=== PATIENT | female | born 1940 | race Caucasian/White ===

== ENCOUNTER 2017-06-25 12:20 | Inpatient (IN) | payer MEDICARE ==
[~2017-06-25] VITALS: Ht 165.1 cm; Wt 63.4 kg
--- NOTE | ~2017-06-25 | CN ---
PATIENT NAME:FELECIA HICKS MEDICAL RECORD: [id number] : 42 LOCATION:. D.2125 ADMIT DATE: 06/25/17 ACCOUNT: [id number] CONSULTING PHYSICIAN: ENMANUEL BACH MD REFERRING PHYSICIAN: RAY LEA M.D. DATE OF CONSULTATION: 06/26/2017 Cardiology consultation ADMITTING DIAGNOSES: 1. Coronary artery disease. 2. Recent percutaneous transluminal coronary angioplasty stent at [place]. 3. Atrial fibrillation, chronic. 4. Shortness of breath. 5. Chronic obstructive pulmonary disease. 6. Urinary tract infection. HISTORY OF PRESENT ILLNESS: Mrs. Hicks presents with generalized weakness, found to have a UTI as well as some shortness of breath. She has COPD. She has atrial fibrillation. This is chronic. She is on AV blocking medications for this. She has had no recent change in her medications. No chest pain and no palpitation. She is also status post recent PTCA stent in [place], ____ stents approximately 10 days ago. She has had no recurrent angina. She is on aspirin as well as Brilinta. PHYSICAL EXAMINATION: GENERAL APPEARANCE: Well-nourished, well-developed, appears stated age. Level of distress, comfortable. PSYCHIATRIC: Mental status, alert, normal affect. Orientation, oriented to time, place and person. EYES: Lids and conjunctiva, noninjected. No discharge, no pallor. ENT: Lips, teeth, gums, normal dentition. Oropharynx, no cyanosis, no pallor. NECK: Carotid arteries, bilateral normal upstroke, no bruits, no thrills. JUGULAR VEINS: No jugular venous pressure or distention. CERVICAL LYMPH NODES: Nontender, nonenlarged. THYROID: Not enlarged. Nontender. No nodules. LUNGS: Respiratory effort, unlabored. CHEST: Normal curvature. No thoracic deformity. No chest wall tenderness. Percussion, resonant. Auscultation, clear. No wheezes, no rales, no rhonchi. CARDIOVASCULAR: Precordial exam, nondisplaced. No heaves or pericardial thrills. Rate and rhythm, regular. Heart sounds, normal S1, normal S2. No S3, no gallop, no rub. Systolic murmur, not heard. Diastolic murmur, not heard. EXTREMITIES: No cyanosis, no edema. Peripheral pulses, full and equal in all extremities, except as noted. No bruits appreciated. ABDOMEN: Soft, nondistended. Normal aorta. No bruit. Nontender. No masses. Liver, nontender, no hepatomegaly. Spleen, nontender, no splenomegaly. MUSCULOSKELETAL: No joint tenderness. No joint swelling. No erythema. NEUROLOGICAL: Normal gait, normal strength, normal tone. SKIN: Warm and dry. REVIEW OF SYSTEMS: The patient reports easy bruising but reports no swollen glands. The patient reports no fever, no night sweats, no significant weight gain, no significant weight loss. No significant exercise tolerance. The patient reports no dry eyes, no irritation, no vision change. Patient reports CONSULT REPORT [id number] FELECIA HICKS no difficulty hearing and no ear pain. Patient reports no frequent nose bleeds or nose and sinus problems. Patient reports on arm pain on exertion. No shortness of breath while lying down. No history of heart murmur. Patient reports no cough, no wheezing or coughing up blood. Patient reports no abdominal pain, no vomiting. Normal appetite. No diarrhea and not vomiting blood. No nausea and no constipation. Patient reports no incontinence. No difficulty urinating. No hematuria. No increased frequency. Patient reports no muscle aches. No weakness, no arthralgias, no back pain. No swelling of the extremities. Patient reports no abnormal mole, no jaundice, no rashes. Reports no loss of consciousness. No weakness and no numbness. No seizures, dizziness, or headaches. The patient reports no depression, no sleep disturbance, feeling safe in a relationship and no alcohol abuse. Patient reports on fatigue. Reports no runny nose or sinus pressure. No itching, no hives, and no frequent sneezing. OVERALL IMPRESSION: 1. Atrial fibrillation, chronic, stable on current medications. 2. Coronary artery disease, chronic, stable on current medications. No cardiac workup or treatment is necessary at this time. TRANSINT:[id number] Voice Confirmation ID: [id number] DOCUMENT ID: [id number] ENMANUEL BACH MD CC: [id number] DICTATION DATE: 06/26/17 1156 ANIMAL HUSBANDMAN: 06/26/17 1421 ADM IN [facility] [address] [place] [address]
[2017-06-25 13:21] LABS: APPEARANCE HAZY (CLEAR); BILIRUBIN NEGATIVE (NEGATIVE); COLOR YELLOW (YELLOW); GLUCOSE NEGATIVE (NEGATIVE); KETONE NEGATIVE (NEGATIVE); LEUKOCYTE ESTERASE 2+ (NEGATIVE); NITRITE POSITIVE (NEGATIVE); PROTEIN 1+ mg/dL (NEGATIVE); UROBILINOGEN NORMAL (NORMAL)
[2017-06-25 13:22] LABS: BASOPHILS 0.1 % (0-2); EOSINOPHILS 1.5 % (0-7); HEMOGLOBIN 10.4 g/dL (12-16); IMMATURE GRANULOCYTES 0.7 % (0-5); LYMPHOCYTES 13.8 % (15-50); MCH 29.4 pg (26.0-34.0); MCHC 33.5 g/dL (31.0-37.0); MCV 87.6 fL (80.0-100.0); MEAN PLATELET VOLUME 9.6 fL (7.4-10.4); MONOCYTES 8.2 % (2-11); NEUTROPHILS 75.7 % (40-80); PLATELET COUNT 351 10x3/uL (130-400); RBC 3.54 10x6/uL (4.00-5.40); WBC 13.8 10x3/uL (4.8-10.8)
[2017-06-25 13:22] LABS: BACTERIA MANY /hpf (NONE SEEN); WHITE CELLS - URINE 25-50 /hpf (0-5)
[2017-06-25 13:36] LABS: ALBUMIN 3.2 g/dL (3.4-5.0); ANION GAP 19.3 mmol/L (8-16); BILIRUBIN - TOTAL 0.74 mg/dL (0.2-1.3); CALCIUM 9.1 mg/dL (8.5-10.1); CARBON DIOXIDE 23.5 mmol/L (21.0-32.0); CREATININE - SERUM 3.3 mg/dL (0.6-1.3); POTASSIUM - SERUM 4.8 mmol/L (3.5-5.1); PROTEIN - SERUM 7.8 g/dL (6.4-8.2)
[2017-06-25 13:58] LABS: TROPONIN-I 1.784 ng/mL (0.000-0.060)
[2017-06-25] MEDS ORDERED: BAYER CHEWABLE81 MG PO (15:15)
[2017-06-25] MEDS ORDERED: CARDIZEM CD240 MG PO (15:16)
[2017-06-25] MEDS ORDERED: BRILINTA90 MG PO (15:16)
[2017-06-25] MEDS ORDERED: METOPROLOL TART50 MG PO (15:17)
--- NOTE | 2017-06-25 15:30 | NUR ---
RECIVED FROM ER PER WC TO ROOM 2125. ADMIT ASSESSMENT PER RN.
--- NOTE | 2017-06-25 15:45 | NUR ---
TRANSFER FROM ER. OREINTED TO ROOM. CALL LIGHT IN REACH. WILL CONT. PLAN OF CARE.
[2017-06-25 15:48] VITALS: BP 135/89; BMI 21.4
[2017-06-25 16:42] VITALS: BP 135/89
--- NOTE | 2017-06-25 17:55 | NUR ---
WITHOUT CHANGES OR DISTRESS NOTED AT THIS TIME. DENIES NEEDS.
[2017-06-25 18:40] LABS: CKMB 1.1 U/L (0.0-3.6); CREATINE KINASE 49 UL (21-215)
[2017-06-25 18:42] LABS: TROPONIN-I 1.772 ng/mL (0.000-0.060)
[2017-06-25 19:00] VITALS: BP 121/64
--- NOTE | 2017-06-25 22:35 | NUR ---
INITIAL ROUNDS COMPLETED AT 1915 HRS. PT DENIED ANY DISCOMFORT. BUT WANTS IV SITE CHANGED OUT. STATES IT IS BOTHERING HER IN HER AC. ASSESSMENT COMPLETEDA T 2000 HRS. VSS. CAF PER CM HR 74. IV TO LAC WITH NS AT 75CC/HR. IV PATENT. LUNGS DIMINISHED IN BASES BILAT. BRUISING NOTED TO BILAT ARMS AND R GROIN. NEW IV STARTED #20 TO L HAND WITH ATTEMPT X1 AT 2210 HRS. PT TOLERATED WELL. NS AT 75C/HR TO THAT SITE. IV TO LAC DC'D WITH CATHETER INTACT. WILL CONTINUE TO MONITOR. SR UP X2, CALL LIGHT WITHIN REACH.
[2017-06-26] VITALS: BP 132/84
--- NOTE | 2017-06-26 00:06 | NUR ---
PT AWAKW; DENIES ANY DISCOMFORT. WILL CONTINUE TO MONITOR.
[2017-06-26 01:23] LABS: CREATINE KINASE 52 UL (21-215)
[2017-06-26 01:25] LABS: TROPONIN-I 1.534 ng/mL (0.000-0.060)
--- NOTE | 2017-06-26 02:24 | NUR ---
PT AWAKE; DENIES ANY DISCOMFORT. WILL CONTINUE TO MONITOR.
[2017-06-26 04:00] VITALS: BP 140/86
--- NOTE | 2017-06-26 04:06 | NUR ---
PT AWAKE; DENIES ANY DISCOMFORT. WILL CONTINUE TO MONITOR.
[2017-06-26 05:22] LABS: BASOPHILS 0.2 % (0-2); EOSINOPHILS 1.1 % (0-7); HEMATOCRIT 30.4 % (36.0-48.0); IMMATURE GRANULOCYTES 0.8 % (0-5); LYMPHOCYTES 10.7 % (15-50); MCH 28.8 pg (26.0-34.0); MCHC 32.9 g/dL (31.0-37.0); MCV 87.6 fL (80.0-100.0); MEAN PLATELET VOLUME 9.7 fL (7.4-10.4); MONOCYTES 8.9 % (2-11); NEUTROPHILS 78.3 % (40-80); PLATELET COUNT 352 10x3/uL (130-400); RBC 3.47 10x6/uL (4.00-5.40); RDW 13.1 % (11.5-14.5); WBC 13.1 10x3/uL (4.8-10.8)
[2017-06-26 05:52] LABS: ANION GAP 18.2 mmol/L (8-16); CALCIUM 8.4 mg/dL (8.5-10.1); CREATININE - SERUM 3.3 mg/dL (0.6-1.3); POTASSIUM - SERUM 4.2 mmol/L (3.5-5.1)
--- NOTE | 2017-06-26 06:36 | NUR ---
VSS THROUGHTOUT NIGHT. CAF PER CM. PT DENIED ANY DISCOMFORT. NEEDS MET; WILL CONTINUE TO MONITOR.
--- NOTE | 2017-06-26 07:23 | NUR ---
ASSESSMENT DONE. DENIES NEEDS.
[2017-06-26 08:00] VITALS: BP 143/80
--- NOTE | 2017-06-26 09:26 | NUR ---
RESTS IN BED WITHOUT NEEDS VOICED. IV PATENT. CALL LIGHT IN REACH. WILL CONT. PLAN OF CARE.
[2017-06-26 12:04] VITALS: BP 133/81
[2017-06-26 13:31] LABS: % SATURATION 19 % (15-55); IRON 61 ug/dl (35-150); TOTAL IRON BIND CAPACITY 314 ug/dl (260-445); UNSAT IRON BIND CAPACITY 253 ug/dl (150-375)
[2017-06-26 16:00] VITALS: BP 124/70
--- NOTE | 2017-06-26 18:32 | NUR ---
WITHOUT CHANGES OR DISTRESS NOTED AT THIS TIME. DENIES NEEDS
--- NOTE | 2017-06-26 19:33 | NUR ---
INITIAL ROUNDS COMPLETED. PT DENIES ANY DISCOMFORT. WILL CONTINUE TO MONITOR.
[2017-06-26 20:00] VITALS: BP 115/68
--- NOTE | 2017-06-26 23:02 | NUR ---
ASSESSMETN COMPLETEDA T 2019 HRS. VSS. CAF PER CM HR 78. IV TO LFA WITH NS AT 75CC/HR. IV PATENT. BRUISING NOTED TO BILAT ARMS. LUNGS DIMINISHED IN BASES BILAT. PM MEDS GIVEN. PT CURRENTLY WATCHING TV. WILL CONTINUE TO MONITOR. SR UP X2, CALL LIGHT WITHIN REACH.
[2017-06-27 00:22] VITALS: BP 120/70
--- NOTE | 2017-06-27 00:22 | NUR ---
VSS. PT DENIES ANY DISCOMFORT. WILL CONTINUE TO MONITOR.
--- NOTE | 2017-06-27 02:36 | NUR ---
PT AWAKE;DENIES ANY DISCOMFORT. WILL CONTINUE TO MONITOR.
--- NOTE | 2017-06-27 04:09 | NUR ---
VSS. CAF PER CM. PT DENIES ANY DISCOMFORT. WILL CONTINUE TO MONITOR.
[2017-06-27 04:28] VITALS: BP 140/76
[2017-06-27 06:00] LABS: BASOPHILS 0.1 % (0-2); EOSINOPHILS 0.7 % (0-7); HEMATOCRIT 30.9 % (36.0-48.0); HEMOGLOBIN 10.4 g/dL (12-16); IMMATURE GRANULOCYTES 0.7 % (0-5); LYMPHOCYTES 11.4 % (15-50); MCH 29.5 pg (26.0-34.0); MCHC 33.7 g/dL (31.0-37.0); MCV 87.5 fL (80.0-100.0); MEAN PLATELET VOLUME 9.2 fL (7.4-10.4); MONOCYTES 7.8 % (2-11); NEUTROPHILS 79.3 % (40-80); PLATELET COUNT 339 10x3/uL (130-400); RBC 3.53 10x6/uL (4.00-5.40); RDW 13.4 % (11.5-14.5); WBC 13.7 10x3/uL (4.8-10.8)
[2017-06-27 06:17] LABS: ANION GAP 18.4 mmol/L (8-16); CALCIUM 8.5 mg/dL (8.5-10.1); CARBON DIOXIDE 21.1 mmol/L (21.0-32.0); CREATININE - SERUM 2.9 mg/dL (0.6-1.3); POTASSIUM - SERUM 4.5 mmol/L (3.5-5.1)
--- NOTE | 2017-06-27 06:29 | NUR ---
VSS THROUGHOUT NGITH. CAF PER CM. NO DISTRESS NOTED. NEEDS MET; WILL CONTINUE TO MONITOR.
--- NOTE | 2017-06-27 07:30 | NUR ---
RESTING QUIETLY DENIES ANY NEEDS OR DISCOMFORT AT THIS TIME NAD NOTED
--- NOTE | 2017-06-27 07:46 | NUR ---
ASSESSMENT DONE. DENIES NEEDS.
[2017-06-27 10:34] VITALS: BP 127/61
[2017-06-27 12:00] VITALS: BP 113/83
[2017-06-27 12:58] VITALS: Ht 165.1 cm; Wt 63.4 kg
[2017-06-27 16:34] VITALS: BP 125/78
--- NOTE | 2017-06-27 16:58 | NUR ---
WITHOUT CHANGES OR DISTRESS NOTED AT THIS TIME. DENIES NEEDS.
[2017-06-27 19:00] VITALS: BP 153/86
--- NOTE | 2017-06-27 19:34 | NUR ---
FRESH ICE WATER GIVEN AT PT REQUEST, NO OTHER NEEDS AT THIS TIME.
--- NOTE | 2017-06-27 22:12 | NUR ---
SPOKE WITH ENDODONTIST, INFORMED HER THAT I NEED AN OVERRIDE FOR ATIVAN.
[2017-06-28] VITALS: BP 144/79
--- NOTE | 2017-06-28 00:09 | NUR ---
LINE MAINTENANCE TECHNICIAN AT BED SIDE TO OBTAIN VITALS.
--- NOTE | 2017-06-28 03:01 | NUR ---
PT RESTING IN BED WITH NO DISTRESS. RESPS EVEN/NONLABORED. MONITOR AND CPOC. CALL LIGHT IN REACH. BED LOW.
--- NOTE | 2017-06-28 03:09 | NUR ---
RESTING WITH EYES CLOSED, RESPERATIONS EVEN, NO S/S DISTRESS NOTED.
[2017-06-28 04:00] VITALS: BP 146/71
[2017-06-28 06:05] LABS: BASOPHILS 0.1 % (0-2); EOSINOPHILS 0.4 % (0-7); HEMATOCRIT 30.8 % (36.0-48.0); HEMOGLOBIN 10.3 g/dL (12-16); LYMPHOCYTES 8.2 % (15-50); MCH 29.2 pg (26.0-34.0); MCHC 33.4 g/dL (31.0-37.0); MCV 87.3 fL (80.0-100.0); MEAN PLATELET VOLUME 9.4 fL (7.4-10.4); MONOCYTES 7.5 % (2-11); NEUTROPHILS 82.8 % (40-80); PLATELET COUNT 333 10x3/uL (130-400); RBC 3.53 10x6/uL (4.00-5.40); RDW 13.7 % (11.5-14.5); WBC 14.4 10x3/uL (4.8-10.8)
[2017-06-28 06:09] LABS: ANION GAP 19.6 mmol/L (8-16); CALCIUM 7.9 mg/dL (8.5-10.1); CREATININE - SERUM 2.8 mg/dL (0.6-1.3)
[2017-06-28 06:10] LABS: POTASSIUM - SERUM 3.6 mmol/L (3.5-5.1)
--- NOTE | 2017-06-28 07:43 | NUR ---
ASSESSMENT COMPLETED. TELEMERTY SHOWS CAF. O2 AT 2L/M PER NC. LEFT HAD IV AT 75 CC/HR. DENIES ANY NEEDS. SR UP WITH CALL LIGHT IN REACH. WILL MONITOR
[2017-06-28 08:23] VITALS: BP 128/87
--- NOTE | 2017-06-28 09:22 | NUR ---
REFUSES MEDS UNTIL SEEN BY DOCTOR
--- NOTE | 2017-06-28 11:58 | NUR ---
PT HAS REFUSED ALL MEDS UNTILL DR LUTZ HER
[2017-06-28 12:13] VITALS: BP 155/83
--- NOTE | 2017-06-28 12:58 | NUR ---
PT STILL REFUSSING TO TAKE MEDS TELEMERTY SHOWS CAF. SR UP WITH CALL LIGHT IN REACH. WILL MONITOR
[2017-06-28 16:10] VITALS: BP 144/93
--- NOTE | 2017-06-28 18:18 | NUR ---
UP ON SIDE OF BED.DENIES ANY NEEDS. REFUSES ANY MEDS EXCEPT IV FLUID. TELEMERTY SHOWS UCAF 102
[2017-06-28 19:00] VITALS: BP 155/86
--- NOTE | 2017-06-28 19:45 | NUR ---
US TECH AT BED SIDE, PT DENIES NEEDS.
[2017-06-29 04:00] VITALS: BP 127/86
--- NOTE | 2017-06-29 04:55 | NUR ---
HANDBOOK WRITER AT BED SIDE TO OBTAIN VITALS, NO S/S DISTRESS NOTED.
[2017-06-29 05:52] LABS: BASOPHILS 0.1 % (0-2); EOSINOPHILS 0.2 % (0-7); HEMOGLOBIN 10.7 g/dL (12-16); IMMATURE GRANULOCYTES 0.9 % (0-5); LYMPHOCYTES 8.6 % (15-50); MCH 29.6 pg (26.0-34.0); MCHC 33.4 g/dL (31.0-37.0); MCV 88.4 fL (80.0-100.0); MEAN PLATELET VOLUME 9.5 fL (7.4-10.4); MONOCYTES 7.4 % (2-11); NEUTROPHILS 82.8 % (40-80); PLATELET COUNT 294 10x3/uL (130-400); RBC 3.62 10x6/uL (4.00-5.40); RDW 14.2 % (11.5-14.5); WBC 14.3 10x3/uL (4.8-10.8)
[2017-06-29 06:35] LABS: ANION GAP 21.5 mmol/L (8-16); CALCIUM 7.7 mg/dL (8.5-10.1); CARBON DIOXIDE 18.8 mmol/L (21.0-32.0); CREATININE - SERUM 2.6 mg/dL (0.6-1.3); POTASSIUM - SERUM 4.3 mmol/L (3.5-5.1)
--- NOTE | 2017-06-29 07:37 | NUR ---
AM ROUNDS PT UP TO SIDE OF BED, COUGHING, PT DENIES ANY NEEDS AT THIS TIME, BED LOW AND WHEELS LOCKED, BEDSIDE RAILS X2, RESP EVEN AND UNLABORED. LT HAND IV INFUSING NS AT 75CC/HR. CALL LIGHT IN REACH, NAD NOTED, WILL CONTINUE TO MONITOR.
[2017-06-29 08:14] VITALS: BP 141/97
--- NOTE | 2017-06-29 08:51 | NUR ---
AM MEDS GIVEN AT THIS TIME. PT UP TO SIDE OF BED, DENIES ANY NEEDS AT THIS TIME. CALL LIGHT IN REACH, NAD NOTED, WILL CONTINUE TO MONITOR.
[2017-06-29 09:16] LABS: FOLATE (FOLIC ACID) - SERUM >20.0 ng/mL (>3.0)
[2017-06-29 12:05] VITALS: BP 153/95
[2017-06-29] MEDS ORDERED: LEVAQUIN250 MG PO (13:11)
--- NOTE | 2017-06-29 14:30 | NUR ---
WALKED PT WITHOUT OXYGEN AND PT ONLY DROPPED TO 91%.
--- NOTE | 2017-06-29 14:55 | NUR ---
PROVIDED VERBAL AND WRITTEN DISCHARGE INSTRUCTIONS TO PT AND CAREGIVER AT BEDSIDE. BOTH VERBALIZED UNDERSTANDING REGARDING TEACHING. D/C LT HAND IV, TIP INTACT. WILL CALL FOR WHEELCHAIR FOR PT.
--- NOTE | 2017-06-29 15:02 | NUR ---
PT LEFT UNIT VIA WHEELCHAIR, ACCOMPANIED BY CAREGIVER, NAD NOTED.
--- NOTE | 2017-06-29 17:20 | NUR ---
Patient Name: FELECIA HICKS Admission Status: ER Accout number: [id number] Admission Date: 06-25-2017 : 1941 Admission Diagnosis:WEAKNESS Attending: RAY LEA Current LOS: 4 Anticipated DC Date: 06-29-2017 Planned Disposition: Home Primary Insurance: MEDICARE A & B LATE ENTRY: Discharge Planning Comments: * Is the patient Alert and Oriented? Yes 0 * How many steps to enter\exit or inside your home? 2 0 * PCP DR. NATO LANDIN IN [facility] [place]. 0 * Pharmacy [facility], [place], [place]. 0 * Preadmission Environment Home with Family 0 * ADLs Independent 0 * Equipment Bedside Commode Shower Chair Wheelchair 0 * Other Equipment NO MEDICAL EQUIPMENT PROVIDER PREFERENCE 0 * List name and contact numbers for known caregivers / representatives who currently or will assist patient after discharge: SUELLEN SINGH, FRIEND, 0 * Community resources currently utilized None 0 * Please name any agencies selected above. NONE 0 * Additional services required to return to the preadmission environment? No 0 * Can the patient safely return to the preadmission environment? Yes 0 * Has this patient been hospitalized within the prior 30 days at any hospital? Yes 0 CM MET WITH PT IN ROOM TO DISCUSS DISCHARGE PLANNING AND NEEDS. PT REPORTS LIVING AT HOME INDEPENDENTLY WITH HER SPOUSE. PT HAS BEDSIDE COMMODE, SHOWER CHAIR AND WHEELCHAIR WITH NO MEDICAL EQUIPMENT PROVIDER PREFERENCE. PT HAS NO OUTSIDE SERVICES ASSISTING IN THE HOME. CM DISCUSSED AVAILABILITY OF HOME HEALTH, REHAB SERVICES AND MEDICAL EQUIPMENT. PT DENIES DISCHARGE NEEDS, REPORTS HER FRIEND WILL PICK HER UP FOR DISCHARGE HOME TODAY. PT WILL BE STAYING WITH HER FRIEND HERE IN [place] FOR A FEW DAYS PRIOR TO RETURNING HOME. IMPORTANT MESSAGE FROM MEDICARE PROVIDED AND EXPLAINED. Family Service Assistant: Julien Hoff
== END 2017-06-29 15:00 | disposition home or self-care (01) | DRG 683 ==
LOC: D.ER 12:20 → D.M2 14:33 → D.SDCHOLD 18:21 → D.M2 18:24 → D.SDCHOLD 18:37 → D.M2 18:38 → D.SDCHOLD 19:09 → D.M2 19:11
PROVIDERS: Emergency Medicine; Nurse Practitioner Family; ADMIT Family Medicine
DX: N17.9 Acute kidney failure, unspecified (principal); F17.203 Nicotine dependence unspecified, with withdrawal; I25.10 Atherosclerotic heart disease of native coronary artery without angina pectoris; I48.2 Chronic atrial fibrillation; D64.9 Anemia, unspecified; J44.9 Chronic obstructive pulmonary disease, unspecified; N12 Tubulo-interstitial nephritis, not specified as acute or chronic; K21.9 Gastro-esophageal reflux disease without esophagitis; Z95.5 Presence of coronary angioplasty implant and graft